=== PATIENT | female | born 1990 | race American Indian/Alaskan Native ===

== ENCOUNTER 2016-10-08 01:41 | Emergency (ER) | payer SELFPAY ==
[2016-10-08] MEDS ORDERED: BENADRYL PO ONE ×2 (05:08→05:15)
[2016-10-08 06:35] VITALS: BP 134/79
--- NOTE | 2016-10-08 06:35 | Emergency Department Report ---
HPI - General Chief Complaint: Skin Rash Time Seen by Provider: 10/08/16 06:17 - HPI HPI: 26-year-old female presents today with rash with itching and burning sensation to both upper extremities and around her mouth that started yesterday. Denies history of allergies. Denies history of similar symptoms. Denies difficulty breathing and difficulty in swallowing. Denies fever, chills, nausea, vomiting , chest pain, shortness of breath, abdominal pain. ED Past Medical Hx - Past Medical History Previous Medical History?: No - Surgical History Past Surgical History?: No - Social History Smoking Status: Never Smoker Substance Use Type: None - Medications Home Medications: Home Medications Medication Instructions Recorded Confirmed Last Taken Type Sulfamethoxazole/Trimethoprim 1 each PO Q12H #14 tablet 02/16/15 Unknown Rx [Bactrim DS TAB] traMADol [Ultram 50 MG tab] 50 mg PO Q6HR PRN #16 tablet 02/16/15 Unknown Rx diphenhydrAMINE [Benadryl CAP] 25 mg PO Q6HR PRN #20 capsule 10/08/16 Unknown Rx ED Review of Systems ROS: Stated complaint: ARM ICHING/BURING Other details as noted in HPI Constitutional: denies: chills, fever, malaise Eyes: denies: eye pain ENT: denies: ear pain, throat pain, congestion Respiratory: denies: cough, shortness of breath, wheezing Cardiovascular: denies: chest pain, palpitations Endocrine: no symptoms reported Gastrointestinal: denies: abdominal pain, nausea, vomiting Skin: rash Neurological: denies: headache, weakness Physical Exam - Physical Exam Vital Signs: Vital Signs 10/08/16 10/08/16 01:57 05:07 Temperature 98.3 F 97.9 F Pulse Rate 118 H 70 Respiratory 18 18 Rate Blood Pressure 142/94 121/80 O2 Sat by Pulse 100 99 Oximetry Physical Exam: GENERAL: The patient is well-developed and well-nourished. Patient is in NAD. SKIN: No rash noted to the upper extremities or face. (examination post medication) HEAD: Normocephalic. Atraumatic. EYES: PERRL. NOSE: Normal nasal mucosa with no nasal discharge. THROAT: No erythema, swelling or exudates. NECK: Supple, nontender, without lymphadenopathy. CHEST/LUNGS: Clear to auscultation throughout. HEART/CARDIOVASCULAR: Regular rate and rhythm. No murmurs, rubs or gallops. ABDOMEN: Abdomen is soft, nontender. Bowel sounds normoactive. No guarding or rebound tenderness. EXTREMITIES: Peripheral pulses intact. Capillary refill less than 2 seconds. NEURO: Alert and oriented x 3. Normal gait. ED Course Vital Signs 10/08/16 10/08/16 01:57 05:07 Temperature 98.3 F 97.9 F Pulse Rate 118 H 70 Respiratory 18 18 Rate Blood Pressure 142/94 121/80 O2 Sat by Pulse 100 99 Oximetry ED Medical Decision Making - Lab Data Vital Signs 10/08/16 10/08/16 10/08/16 01:57 05:07 06:34 Temperature 98.3 F 97.9 F 97.9 F Pulse Rate 118 H 70 89 Respiratory 18 18 18 Rate Blood Pressure 142/94 121/80 Blood Pressure 134/79 [Right] O2 Sat by Pulse 100 99 100 Oximetry - Medical Decision Making 26-year-old female presents today with itching and burning sensation to both upper extremities and surrounding the mouth. Patient was given Benadryl and reports symptomatic relief. Patient is in no acute distress at this time. She will be discharged home and is encouraged to follow up with a primary care provider. She will be sent home on Benadryl and is encouraged to return to the emergency room for any worsening symptoms. Critical care attestation.: If time is entered above; I have spent that time in minutes in the direct care of this critically ill patient, excluding procedure time. ED Disposition Clinical Impression: Rash, Pruritus and related conditions Disposition: DISCHARGED TO HOME OR SELFCARE Is pt being admited?: No Does the pt Need Aspirin: No Condition: Stable Instructions: Acute Rash (ED) Additional Instructions: Follow-up with primary care provider. Return to the emergency department if symptoms worsen. Prescriptions: diphenhydrAMINE [Benadryl CAP] 25 mg PO Q6HR PRN #20 capsule PRN Reason: Itching Referrals: PRIMARY CARE, [Primary Care Provider] - 3-5 Days [facility] [Outside] - 3-5 Days Forms: Work/School Release Form(ED) Time of Disposition: 06:36
== END 2016-10-08 06:47 | disposition home or self-care (01) ==
LOC: ED 01:41
DX: L29.9 Pruritus, unspecified (principal)
CPT/HCPCS: 99282

== ENCOUNTER 2017-11-07 12:44 | Emergency (ER) | payer SELFPAY ==
[2017-11-07 12:52] VITALS: BP 124/72
[2017-11-07 14:47] LABS: Bacteria,Urine 1+ /HPF (Negative); Bilirubin,Urine NEG (Negative); Blood,Urine MOD (Negative); Color,Urine Straw (Yellow); Protein,Urine <15 mg/dL mg/dL (Negative); Urobilinogen,Urine < 2.0 mg/dL (<2.0)
[2017-11-07 14:49] LABS: HCG Qualitative,Urine Negative (Negative)
--- NOTE | 2017-11-07 15:09 | Emergency Department Report ---
ED Female HPI - General Chief complaint: Urogenital-Female Stated complaint: BURNING WITH UNRINATION Time Seen by Provider: 11/07/17 14:14 Source: patient Mode of arrival: Ambulatory Limitations: No Limitations - History of Present Illness Initial comments: This is a 27-year-old female nontoxic, well nourished in appearance, no acute signs of distress presents to the ED with c/o of vaginal discharge, vaginal rash , itching, and dysuria x3 days. Patient stated he is concerned about STD and wants to be treated empirically. Patient stated she had several intercourse with 2 different partners with no protection prior to these symptoms. Patient denies any nausea, vomiting, chest pain, abdominal pain, shortness of breathe, fever, chills, back pain, headache, or back pain. Patient denies polyuria or hematuria. Patient denies any vaginal bleeding. Patient denies any allergies or PMH. MD Complaint: vaginal discharge, dysuria, possible STD -: days(s) (3) Location: labia Radiation: non-radiating Severity: mild Severity scale (0 -10): 3 Quality: burning Consistency: constant Improves with: none Worsens with: urination Are you Now?: No Last Menstrual Period: 10/08/17 EDC: 07/15/18 Associated Symptoms: vaginal discharge, dysuria. denies: vaginal bleeding, abdominal pain, nausea/vomiting, fever/chills, headaches, loss of appetite, hematuria, rash, seizure, shortness of breath, syncope, weakness - Related Data Sexually active: No Previous Rx's Medication Instructions Recorded Last Taken Type Sulfamethoxazole/Trimethoprim 1 each PO Q12H #14 tablet 02/16/15 Unknown Rx [Bactrim DS TAB] traMADol [Ultram 50 MG tab] 50 mg PO Q6HR PRN #16 tablet 02/16/15 Unknown Rx diphenhydrAMINE [Benadryl CAP] 25 mg PO Q6HR PRN #20 capsule 10/08/16 Unknown Rx Sulfamethoxazole/Trimethoprim 1 each PO BID #14 tablet 11/07/17 Unknown Rx [Bactrim DS TAB] metroNIDAZOLE [Flagyl] 500 mg PO Q12HR #14 tab 11/07/17 Unknown Rx Allergies Allergy/AdvReac Type Severity Reaction Status Date / Time No Known Allergies Allergy Verified 02/15/15 22:57 ED Review of Systems ROS: Stated complaint: BURNING WITH UNRINATION Other details as noted in HPI Constitutional: denies: chills, fever Eyes: denies: eye pain, eye discharge, vision change ENT: denies: ear pain, throat pain Respiratory: denies: cough, shortness of breath, wheezing Cardiovascular: denies: chest pain, palpitations Endocrine: no symptoms reported Gastrointestinal: denies: abdominal pain, nausea, diarrhea Genitourinary: dysuria. denies: urgency, hematuria, discharge Musculoskeletal: denies: back pain, joint swelling, arthralgia Skin: denies: rash, lesions Neurological: denies: headache, weakness, paresthesias Psychiatric: denies: anxiety, depression Hematological/Lymphatic: denies: easy bleeding, easy bruising ED Past Medical Hx - Past Medical History Previous Medical History?: No - Surgical History Past Surgical History?: No - Social History Smoking Status: Never Smoker Substance Use Type: None - Medications Home Medications: Home Medications Medication Instructions Recorded Confirmed Last Taken Type Sulfamethoxazole/Trimethoprim 1 each PO Q12H #14 tablet 02/16/15 Unknown Rx [Bactrim DS TAB] traMADol [Ultram 50 MG tab] 50 mg PO Q6HR PRN #16 tablet 02/16/15 Unknown Rx diphenhydrAMINE [Benadryl CAP] 25 mg PO Q6HR PRN #20 capsule 10/08/16 Unknown Rx Sulfamethoxazole/Trimethoprim 1 each PO BID #14 tablet 11/07/17 Unknown Rx [Bactrim DS TAB] metroNIDAZOLE [Flagyl] 500 mg PO Q12HR #14 tab 11/07/17 Unknown Rx ED Physical Exam - General Limitations: No Limitations General appearance: alert, in no apparent distress - Head Head exam: Present: atraumatic, normocephalic - Eye Eye exam: Present: normal appearance Pupils: Present: normal accommodation - ENT ENT exam: Present: normal exam, mucous membranes moist - Neck Neck exam: Present: normal inspection, full ROM. Absent: tenderness, meningismus, lymphadenopathy - Respiratory Respiratory exam: Present: normal lung sounds bilaterally. Absent: respiratory distress, wheezes, rales, rhonchi, stridor, chest wall tenderness, accessory muscle use, decreased breath sounds, prolonged expiratory - Cardiovascular Cardiovascular Exam: Present: regular rate, normal rhythm, normal heart sounds. Absent: irregular rhythm, systolic murmur, diastolic murmur, rubs, gallop - GI/Abdominal GI/Abdominal exam: Present: soft, normal bowel sounds. Absent: distended, tenderness, guarding, rebound, rigid, diminished bowel sounds - Rectal Rectal exam: Present: deferred - External exam: Present: normal external exam, other (decorative cutting machine tender Mckayla JAMA present during exam). Absent: erythema, swelling, lesions, lacerations, ecchymosis, bleeding Speculum exam: Present: normal speculum exam, cervical discharge, other ( decorative cutting machine tender Mckayla JAMA present during exam). Absent: erythema, vaginal discharge, vaginal bleeding, foreign body, tissue, laceration Bi-manual exam: Present: normal bi-manual exam, other (decorative cutting machine tender Mckayla JAMA present during exam). Absent: cervical motion tendernes, adnexal tenderness, adnexal mass, uterine enlargement, uterine tenderness - Extremities Exam Extremities exam: Present: normal inspection, full ROM - Back Exam Back exam: Present: normal inspection, full ROM. Absent: tenderness, CVA tenderness (R), CVA tenderness (L) - Neurological Exam Neurological exam: Present: alert, oriented X3, normal gait - Psychiatric Psychiatric exam: Present: normal affect, normal mood - Skin Skin exam: Present: warm, dry, intact, normal color. Absent: rash ED Course Vital Signs 11/07/17 12:48 Temperature 98.5 F Pulse Rate 116 H Respiratory 16 Rate Blood Pressure 124/72 O2 Sat by Pulse 100 Oximetry - Reevaluation(s) Reevaluation #1: 11/07/17 15:11 Patient is speaking in full sentences with no signs of distress noted. ED Medical Decision Making - Medical Decision Making This is a 27-year-old female that presents with UTI, possible STD and Trichamonas. Patient is stable and was examined by me. G/C pending but patient still stated wants to be treated empirically. Patient received a Rocephin and azithromycin. Patient was instructed to return in 3 days to receive results of gonorrhea and chlamydia. UA obtained. Negative test. Patient is discharged with Bactrim and Flagyl. Patient was instructed not to consume any alcohol while taking antibiotics. Patient was referred to Follow-up with a primary care doctor in 3-5 days or if symptoms worsen and continue return to emergency room as soon as possible. At time of discharge, the patient does not seem toxic or ill in appearance. No acute signs of distress noted. Patient agrees to discharge treatment plan of care. No further questions noted by the patient. Critical care attestation.: If time is entered above; I have spent that time in minutes in the direct care of this critically ill patient, excluding procedure time. ED Disposition Clinical Impression: Trichomonas infection, Possible exposure to STD UTI (urinary tract infection) Qualifiers: Urinary tract infection type: site unspecified Hematuria presence: with hematuria Qualified Code(s): N39.0 - Urinary tract infection, site not specified ; R31.9 - Hematuria, unspecified Disposition: DC-01 TO HOME OR SELFCARE Is pt being admited?: No Does the pt Need Aspirin: No Condition: Stable Instructions: Metronidazole (By mouth), Sulfamethoxazole/Trimethoprim (By mouth ), Urinary Tract Infection in Women (ED), Trichomoniasis (ED) Additional Instructions: Follow-up with a primary care doctor in 3-5 days or if symptoms worsen and continue return to emergency room as soon as possible. Prescriptions: metroNIDAZOLE [Flagyl] 500 mg PO Q12HR #14 tab Sulfamethoxazole/Trimethoprim [Bactrim DS TAB] 1 each PO BID #14 tablet Referrals: PRIMARY CAREMD [Primary Care Provider] - 3-5 Days THOMAS GIANG MD [Staff Physician] - 3-5 Days [facility] [Outside] - 3-5 Days [facility] - [facility]-5 Days Forms: Work/School Release Form(ED)
[2017-11-07] MEDS ORDERED: ZITHROMAX PO ONE (16:12)
[2017-11-07] MEDS ORDERED: XYLOCAINE 1% MPF 5 mL INFILTRATI ONE (16:12)
[2017-11-07] MEDS ORDERED: ROCEPHIN IM ONE (16:12)
== END 2017-11-07 16:48 | disposition home or self-care (01) ==
LOC: ED 12:44
DX: A59.01 Trichomonal vulvovaginitis (principal); N39.0 Urinary tract infection, site not specified; Z20.2 Contact with and (suspected) exposure to infections with a predominantly sexual mode of transmission
CPT/HCPCS: 81001; 81025; 87086; 87210; 87591; 96372; 99283; J0696

== ENCOUNTER 2018-08-11 18:30 | Emergency (ER) | payer SELFPAY ==
--- NOTE | 2018-08-11 19:34 | Emergency Department Report ---
Blank Doc - Documentation Documentation: This is a 28-year-old female that presents with right upper abdominal pain and radiates to back. No chest pain or SOB. Denies any other complaints. This initial assessment diagnostic orders/clinical plan/treatment(s) is/are subject to change based on patient's health status, clinical progression and re- assessment by fellow clinical providers in the ED. Further treatment and workup at subsequent clinical providers discretion. Patient/guardians urged not to elope from ED s their condition may be serious if not clinically assessed and managed. Initial orders include: 1-Patient sent to [facility] for further evaluation and treatment 2-labs 3- UA
[2018-08-11 20:12] LABS: Basophils % (Auto) 0.5 % (0.0-1.8); Eosinophils # (Auto) 0.3 K/mm3 (0.0-0.4); Eosinophils % (Auto) 2.9 % (0.0-4.3); Hematocrit 37.4 % (30.3-42.9); Hemoglobin 13.1 gm/dl (10.1-14.3); Lymphocytes % (Auto) 33.7 % (13.4-35.0); Mean Corpuscular HGB Conc 35 % (30-34); Mean Corpuscular Volume 94 fl (79-97); Monocytes # (Auto) 0.4 K/mm3 (0.0-0.8); Monocytes % (Auto) 4.6 % (0.0-7.3); Platelet Count 340 K/mm3 (140-440); Red Blood Count 3.99 M/mm3 (3.65-5.03)
[2018-08-11 20:29] LABS: Alanine Aminotransferase 96 units/L (7-56); Albumin 4.2 g/dL (3.9-5); BUN/Creatinine Ratio 16; Blood Urea Nitrogen 8 mg/dL (7-17); Calcium 9.1 mg/dL (8.4-10.2); Hemolysis Index 4
[2018-08-11 20:31] LABS: Bilirubin,Urine NEG (Negative); Blood,Urine NEG (Negative); Color,Urine Yellow (Yellow); Mucus,Urine FEW /HPF; Protein,Urine <15 mg/dL mg/dL (Negative); Urobilinogen,Urine < 2.0 mg/dL (<2.0)
[2018-08-11] MEDS ORDERED: NACL 0.9% 1000 ML 1,000 ML IV ONE (21:44)
[2018-08-11] MEDS ORDERED: ZOFRAN IV ONE (21:44)
--- NOTE | 2018-08-11 23:21 | Cat Scan Report ---
FINAL REPORT EXAM: CT ABDOMEN PELVIS W CON HISTORY: abd pain TECHNIQUE: CT abdomen and pelvis with intravenous contrast PRIORS: None. FINDINGS: No acute abnormality identified in the lung bases. No focal abnormality identified within the liver parenchyma. The spleen demonstrates normal size and attenuation. No pancreatic abnormalities seen. The kidneys demonstrate symmetric contrast enhancement. No evidence of hydronephrosis. The adrenal glands are unremarkable Abdominal aorta is normal in caliber. No pathologically enlarged lymph nodes are identified. No signs of free fluid or free air No evidence of small bowel dilatation. Colon is nondistended. No pericolonic inflammatory change. The appendix is identified and is unremark able. Urinary bladder is unremarkable. IMPRESSION: Negative. No acute abnormalities seen
--- NOTE | 2018-08-11 23:44 | Emergency Department Report ---
ED Abdominal Pain HPI - General Chief Complaint: Abdominal Pain Stated Complaint: CHEST PAIN/STOMACH Time Seen by Provider: 08/11/18 19:33 Source: patient Mode of arrival: Ambulatory Limitations: No Limitations - History of Present Illness Initial Comments: Patient is a 28-year-old -[place]onese female who presents from primary care's office for abnormal ALT of 96 pt state RUQ for past 3 weeks intermittent nausea no vomiting no fever no diarrhea pt is tolerating po intake at this time, without n/v symptoms are triggered by spicey foods symptoms are relieved nothing tried, pt denies etoh or substance. Onset/Timin -: week(s) Radiation: RUQ Migration to: RUQ Severity: moderate Severity scale (0 -10): 7 Quality: aching Consistency: intermittent Improves With: rest Worsens With: eating Associated Symptoms: denies: vomiting, diarrhea, chills, constipation, dysuria, hematemesis, hematochezia, melena, hematuria, anorexia, syncope Treatments Prior to Arrival: NSAIDs - Related Data LMP (females 10-50): last week Previous Rx's Medication Instructions Recorded Last Taken Type Sulfamethoxazole/Trimethoprim 1 each PO Q12H #14 tablet 02/16/15 Unknown Rx [Bactrim DS TAB] traMADol [Ultram 50 MG tab] 50 mg PO Q6HR PRN #16 tablet 02/16/15 Unknown Rx diphenhydrAMINE [Benadryl CAP] 25 mg PO Q6HR PRN #20 capsule 10/08/16 Unknown Rx Sulfamethoxazole/Trimethoprim 1 each PO BID #14 tablet 11/07/17 Unknown Rx [Bactrim DS TAB] metroNIDAZOLE [Flagyl] 500 mg PO Q12HR #14 tab 11/07/17 Unknown Rx Famotidine [Pepcid] 20 mg PO BID #60 tablet 08/11/18 Unknown Rx Allergies Allergy/AdvReac Type Severity Reaction Status Date / Time No Known Allergies Allergy Verified 08/11/18 18:31 ED Review of Systems ROS: Stated complaint: CHEST PAIN/STOMACH Other details as noted in HPI Constitutional: denies: chills, fever Eyes: denies: eye pain, eye discharge, vision change ENT: denies: ear pain, throat pain Respiratory: denies: cough, shortness of breath, wheezing Cardiovascular: denies: chest pain, palpitations Endocrine: no symptoms reported Gastrointestinal: abdominal pain (RUQ ). denies: nausea, vomiting, diarrhea, constipation, hematemesis, melena, hematochezia Genitourinary: denies: urgency, dysuria, discharge Musculoskeletal: denies: back pain, joint swelling, arthralgia Skin: denies: rash, lesions Neurological: denies: headache, weakness, paresthesias Psychiatric: denies: anxiety, depression Hematological/Lymphatic: denies: easy bleeding, easy bruising ED Past Medical Hx - Past Medical History Previous Medical History?: No - Surgical History Past Surgical History?: No - Social History Smoking Status: Never Smoker Substance Use Type: Marijuana - Medications Home Medications: Home Medications Medication Instructions Recorded Confirmed Last Taken Type Sulfamethoxazole/Trimethoprim 1 each PO Q12H #14 tablet 02/16/15 Unknown Rx [Bactrim DS TAB] traMADol [Ultram 50 MG tab] 50 mg PO Q6HR PRN #16 tablet 02/16/15 Unknown Rx diphenhydrAMINE [Benadryl CAP] 25 mg PO Q6HR PRN #20 capsule 10/08/16 Unknown Rx Sulfamethoxazole/Trimethoprim 1 each PO BID #14 tablet 11/07/17 Unknown Rx [Bactrim DS TAB] metroNIDAZOLE [Flagyl] 500 mg PO Q12HR #14 tab 11/07/17 Unknown Rx Famotidine [Pepcid] 20 mg PO BID #60 tablet 08/11/18 Unknown Rx ED Physical Exam - General Limitations: No Limitations General appearance: alert, in no apparent distress - Head Head exam: Present: atraumatic, normocephalic - Eye Eye exam: Present: normal appearance, PERRL, EOMI Pupils: Present: normal accommodation - ENT ENT exam: Present: normal exam, mucous membranes moist - Neck Neck exam: Present: normal inspection, full ROM. Absent: lymphadenopathy - Respiratory Respiratory exam: Present: normal lung sounds bilaterally, chest wall tenderness. Absent: respiratory distress, wheezes, rales, rhonchi, stridor, prolonged expiratory - Cardiovascular Cardiovascular Exam: Present: regular rate, normal rhythm, normal heart sounds. Absent: systolic murmur, diastolic murmur, rubs, gallop - GI/Abdominal GI/Abdominal exam: Present: soft, tenderness (RUQ ), normal bowel sounds, organomegaly. Absent: distended, guarding, rebound, rigid, bruit, hernia - Rectal Rectal exam: Present: deferred - Extremities Exam Extremities exam: Present: normal inspection, full ROM, normal capillary refill. Absent: tenderness, pedal edema, joint swelling, calf tenderness - Back Exam Back exam: Present: normal inspection. Absent: full ROM, tenderness, CVA tenderness (R), CVA tenderness (L), muscle spasm, paraspinal tenderness, vertebral tenderness, rash noted - Neurological Exam Neurological exam: Present: alert, oriented X3, CN II-XII intact, normal gait, reflexes normal. Absent: motor sensory deficit - Psychiatric Psychiatric exam: Present: normal affect, normal mood - Skin Skin exam: Present: warm, dry, intact, normal color. Absent: rash ED Course Vital Signs 08/11/18 19:31 Temperature 98.6 F Pulse Rate 93 H Respiratory 18 Rate Blood Pressure 121/79 O2 Sat by Pulse 99 Oximetry ED Medical Decision Making - Lab Data Result diagrams: 08/11/18 19:45 08/11/18 19:45 Labs 08/11/18 08/11/18 08/11/18 19:45 19:45 19:45 WBC 8.8 RBC 3.99 Hgb 13.1 Hct 37.4 MCV 94 MCH 33 H MCHC 35 H RDW 13.0 L Plt Count 340 Lymph % (Auto) 33.7 Divide % (Auto) 4.6 Eos % (Auto) 2.9 Baso % (Auto) 0.5 Lymph # 3.0 Divide # 0.4 Eos # 0.3 Baso # 0.0 Seg Neutrophils % 58.3 Seg Neutrophils # 5.1 Sodium 142 Potassium 3.5 L Chloride 105.3 Carbon Dioxide 28 Anion Gap 12 BUN 8 Creatinine 0.5 L Estimated GFR > 60 BUN/Creatinine Ratio 16 Glucose 81 Calcium 9.1 Total Bilirubin 0.20 AST 40 ALT 96 H Alkaline Phosphatase 142 H Total Protein 7.2 Albumin 4.2 Albumin/Globulin Ratio 1.4 Lipase 33 HCG, Qual Negative Urine Color Urine Turbidity Urine pH Ur Specific Hammond Urine Protein Urine Glucose (UA) Urine Ketones Urine Blood Urine Nitrite Urine Bilirubin Urine Urobilinogen Ur Leukocyte Esterase Urine WBC (Auto) Urine RBC (Auto) U Epithel Cells (Auto) Urine Mucus 08/11/18 Unknown WBC RBC Hgb Hct MCV MCH MCHC RDW Plt Count Lymph % (Auto) Divide % (Auto) Eos % (Auto) Baso % (Auto) Lymph # Divide # Eos # Baso # Seg Neutrophils % Seg Neutrophils # Sodium Potassium Chloride Carbon Dioxide Anion Gap BUN Creatinine Estimated GFR BUN/Creatinine Ratio Glucose Calcium Total Bilirubin AST ALT Alkaline Phosphatase Total Protein Albumin Albumin/Globulin Ratio Lipase HCG, Qual Urine Color Yellow Urine Turbidity Clear Urine pH 6.0 Ur Specific Hammond 1.012 Urine Protein <15 mg/dl Urine Glucose (UA) Neg Urine Ketones Neg Urine Blood Neg Urine Nitrite Neg Urine Bilirubin Neg Urine Urobilinogen < 2.0 Ur Leukocyte Esterase Neg Urine WBC (Auto) 1.0 Urine RBC (Auto) 1.0 U Epithel Cells (Auto) 2.0 Urine Mucus Few - Radiology Data Radiology results: report reviewed, image reviewed FINAL REPORT EXAM: CT ABDOMEN PELVIS W CON HISTORY: abd pain TECHNIQUE: CT abdomen and pelvis with intravenous contrast PRIORS: None. FINDINGS: No acute abnormality identified in the lung bases. No focal abnormality identified within the liver parenchyma. The spleen demonstrates normal size and attenuation. No pancreatic abnormalities seen. The kidneys demonstrate symmetric contrast enhancement. No evidence of hydronephrosis. The adrenal glands are unremarkable Abdominal aorta is normal in caliber. No pathologically enlarged lymph nodes are identified. No signs of free fluid or free air No evidence of small bowel dilatation. Colon is nondistended. No pericolonic inflammatory change. The appendix is identified and is unremarkable. Urinary bladder is unremarkable. IMPRESSION: Negative. No acute abnormalities seen Transcribed By: Yobany Dictated By: MAY VAZQUEZ MD Electronically Authenticated By: MAY VAZQUEZ MD Signed Date/Time: 08/11/182320 DD/ 19 TD/TT: 08/11/182319 - Medical Decision Making CT abd pelvis normal, no gallstones no mass no bleeding, plan: pepcid po bid, follow up with GI and back to pcp in tomorrow pt verbaled agreement and understanding of same. pt for dc t home in stable condition at this time, , pt is tolerating PO intake without n/v at this time, Critical care attestation.: If time is entered above; I have spent that time in minutes in the direct care of this critically ill patient, excluding procedure time. ED Disposition Clinical Impression: Right upper quadrant pain Abdominal pain Qualifiers: Abdominal location: right upper quadrant Qualified Code(s): R10.11 - Right upper quadrant pain Disposition: DC-01 TO HOME OR SELFCARE Is pt being admited?: No Does the pt Need Aspirin: No Condition: Stable Instructions: Abdominal Pain (ED), Diet for Ulcers and Gastritis (ED) Prescriptions: Famotidine [Pepcid] 20 mg PO BID #60 tablet Referrals: JOSE KATE MD [Primary Care Provider] - 3-5 Days Forms: Work/School Release Form(ED) Time of Disposition: 23:56
[2018-08-12 00:06] VITALS: BP 125/78
== END 2018-08-12 00:05 | disposition home or self-care (01) ==
LOC: ED 18:30
DX: R10.11 Right upper quadrant pain (principal); F12.10 Cannabis abuse, uncomplicated
CPT/HCPCS: 36415; 74177; 80053; 81001; 83690; 84703; 85025; 99284; Q9967; J2405; J7030

== ENCOUNTER 2019-01-06 23:39 | Emergency (ER) | payer MEDICAID ==
[2019-01-07 01:39] LABS: Bacteria,Urine 1+ /HPF (Negative); Bilirubin,Urine NEG (Negative); Blood,Urine SM (Negative); Color,Urine Yellow (Yellow); Mucus,Urine FEW /HPF; Protein,Urine <15 mg/dL mg/dL (Negative); Urobilinogen,Urine < 2.0 mg/dL (<2.0)
[2019-01-07 01:45] LABS: HCG Qualitative,Urine Positive (Negative)
--- NOTE | 2019-01-07 03:17 | Emergency Department Report ---
ED Abdominal Pain HPI - General Chief Complaint: Abdominal Pain Stated Complaint: ABDOMINAL PAIN FELL AT WORK Time Seen by Provider: 01/07/19 02:15 Source: patient Mode of arrival: Ambulatory Limitations: No Limitations - History of Present Illness Initial Comments: Patient is a 28-year-old female who presents the emergency room with complaints of right suprapubic abdominal pain that began earlier today. She states she was at work and tripped over luggage and fell onto a piece of luggage. she denies any bruising of the abdomen. she denies any nausea, vomiting, diarrhea, fever, urinary symptoms, hematuria. States she thinks her last menstrual period was around 2 months ago. States she has never been before. Denies any past medical history or allergies to medications. She endorses marijuana use. - Related Data Previous Rx's Medication Instructions Recorded Last Taken Type Sulfamethoxazole/Trimethoprim 1 each PO Q12H #14 tablet 02/16/15 Unknown Rx [Bactrim DS TAB] traMADol [Ultram 50 MG tab] 50 mg PO Q6HR PRN #16 tablet 02/16/15 Unknown Rx diphenhydrAMINE [Benadryl CAP] 25 mg PO Q6HR PRN #20 capsule 10/08/16 Unknown Rx Sulfamethoxazole/Trimethoprim 1 each PO BID #14 tablet 11/07/17 Unknown Rx [Bactrim DS TAB] metroNIDAZOLE [Flagyl] 500 mg PO Q12HR #14 tab 11/07/17 Unknown Rx Famotidine [Pepcid] 20 mg PO BID #60 tablet 08/11/18 Unknown Rx 21/Iron Fu/Folic Acid 1 each PO DAILY #1 tablet 01/07/19 Unknown Rx [ Complete Caplet] Allergies Allergy/AdvReac Type Severity Reaction Status Date / Time No Known Allergies Allergy Verified 08/11/18 18:31 ED Review of Systems ROS: Stated complaint: ABDOMINAL PAIN FELL AT WORK Other details as noted in HPI Comment: All other systems reviewed and negative ED Past Medical Hx - Past Medical History Previous Medical History?: No - Surgical History Past Surgical History?: Yes Additional Surgical History: lipo - Social History Smoking Status: Never Smoker Substance Use Type: Marijuana - Medications Home Medications: Home Medications Medication Instructions Recorded Confirmed Last Taken Type Sulfamethoxazole/Trimethoprim 1 each PO Q12H #14 tablet 02/16/15 Unknown Rx [Bactrim DS TAB] traMADol [Ultram 50 MG tab] 50 mg PO Q6HR PRN #16 tablet 02/16/15 Unknown Rx diphenhydrAMINE [Benadryl CAP] 25 mg PO Q6HR PRN #20 capsule 10/08/16 Unknown Rx Sulfamethoxazole/Trimethoprim 1 each PO BID #14 tablet 11/07/17 Unknown Rx [Bactrim DS TAB] metroNIDAZOLE [Flagyl] 500 mg PO Q12HR #14 tab 11/07/17 Unknown Rx Famotidine [Pepcid] 20 mg PO BID #60 tablet 08/11/18 Unknown Rx 21/Iron Fu/Folic Acid 1 each PO DAILY #1 tablet 01/07/19 Unknown Rx [ Complete Caplet] ED Physical Exam - General Limitations: No Limitations General appearance: alert, in no apparent distress - Head Head exam: Present: atraumatic, normocephalic - Eye Eye exam: Present: normal appearance, PERRL - ENT ENT exam: Present: mucous membranes moist - Respiratory Respiratory exam: Present: normal lung sounds bilaterally. Absent: respiratory distress, wheezes, rales, rhonchi, stridor, chest wall tenderness, accessory muscle use, decreased breath sounds, prolonged expiratory - Cardiovascular Cardiovascular Exam: Present: regular rate, normal rhythm, normal heart sounds. Absent: systolic murmur, diastolic murmur, rubs, gallop - GI/Abdominal GI/Abdominal exam: Present: soft, normal bowel sounds. Absent: distended, tenderness, guarding, rebound, rigid - Back Exam Back exam: Absent: CVA tenderness (R), CVA tenderness (L) - Neurological Exam Neurological exam: Present: alert, oriented X3 - Psychiatric Psychiatric exam: Present: normal affect, normal mood - Skin Skin exam: Present: warm, dry, intact ED Course Vital Signs 01/06/19 01/07/19 23:43 06:50 Temperature 98.1 F 98 F Pulse Rate 82 82 Respiratory 16 18 Rate Blood Pressure 115/76 Blood Pressure 110/68 [Left] O2 Sat by Pulse 100 100 Oximetry ED Medical Decision Making - Lab Data Lab Results 01/07/19 01/07/19 Range/Units 01:10 02:49 HCG, Quant 442.8 H (0-4) mIU/mL Urine Color Yellow (Yellow) Urine Turbidity Clear (Clear) Urine pH 6.0 (5.0-7.0) Ur Specific [place] 1.012 (1.003-1.030) Urine Protein <15 mg/dl (Negative) mg/dL Urine Glucose (UA) Neg (Negative) mg/dL Urine Ketones 20 (Negative) mg/dL Urine Blood Sm (Negative) Urine Nitrite Neg (Negative) Urine Bilirubin Neg (Negative) Urine Urobilinogen < 2.0 (<2.0) mg/dL Ur Leukocyte Esterase Neg (Negative) Urine WBC (Auto) 1.0 (0.0-6.0) /HPF Urine RBC (Auto) 3.0 (0.0-6.0) /HPF U Epithel Cells (Auto) 1.0 (0-13.0) /HPF Urine Bacteria (Auto) 1+ (Negative) /HPF Urine Mucus Few /HPF Urine HCG, Qual Positive A (Negative) - Radiology Data Radiology results: report reviewed ULTRASOUND OBSTETRIC INDICATION: Abdominal pain. Early . Beta hCG of 442. TECHNIQUE: Transabdominal. COMPARISON: None available. FINDINGS: UTERUS: Normal in size, measuring 7.6 x 3.6 x 5.4 cm. No gestational sac is identified. The endometrial stripe measures 10 mm in thickness and appears unremarkable. ADNEXA: The right ovary is normal in size and appearance, measuring 2.6 x 1.4 x 1.6 cm. The left ovary measures 3.1 x 1.9 x 2.1 cm with a possible corpus luteum cyst measuring 2 mm. FREE FLUID: None. ADDITIONAL FINDINGS: None. IMPRESSION: No intrauterine or ectopic is clearly seen sonographically. Close clinical and imaging follow-up is recommended. Signer Name: Dar Bolton MD Signed: 01/07/2019 5:41 AM Workstation Name: [id number] Transcribed By: ANNETTE Dictated By: Dar Bolton MD Electronically Authenticated By: Dar Bolton MD Signed Date/Time: 01/07/19 0541 - Medical Decision Making Patient is a 28-year-old female who presents the emergency room with complaints of right suprapubic abdominal pain that began earlier today. She states she was at work and tripped over luggage and fell onto a piece of luggage. she denies any bruising of the abdomen. she denies any nausea, vomiting, diarrhea, fever, urinary symptoms, hematuria. States she thinks her last menstrual period was around 2 months ago. States she has never been before. Denies any past medical history or allergies to medications. She endorses marijuana use. UA is normal. urine preg is positive. hcg quant is in the 400s. OB US performed and shows No intrauterine or ectopic is clearly seen sonographically. Close clinical and imaging follow-up is recommended. pt was advised by my colleague RONNIE schulte to follow up with an [employer]. he discussed with pt that she would need a repeat hcg quant in the next 48 hours. return to the emergency room for any new or worsening symptoms. Critical care attestation.: If time is entered above; I have spent that time in minutes in the direct care of this critically ill patient, excluding procedure time. ED Disposition Clinical Impression: Abdominal pain in Qualifiers: Trimester: first trimester Qualified Code(s): O26.891 - Other specified related conditions, first trimester; R10.9 - Unspecified abdominal pain Disposition: - TO HOME OR SELFCARE Is pt being admited?: No Does the pt Need Aspirin: No Condition: Stable Instructions: Abdominal Pain (ED) Prescriptions: 21/Iron Fu/Folic Acid [ Complete Caplet] 1 each PO DAILY #1 tablet Referrals: PRIMARY CARE, [Primary Care Provider] - 2-3 Days
--- NOTE | 2019-01-07 05:45 | Ultrasound Report ---
ULTRASOUND OBSTETRIC INDICATION: Abdominal pain. Early . Beta hCG of 442. TECHNIQUE: Transabdominal. COMPARISON: None available. FINDINGS: UTERUS: Normal in size, measuring 7.6 x 3.6 x 5.4 cm. No gestational sac is identified. The endometri al stripe measures 10 mm in thickness and appears unremarkable. ADNEXA: The right ovary is normal in size and appearance, measuring 2.6 x 1.4 x 1.6 cm. The left ovar y measures 3.1 x 1.9 x 2.1 cm with a possible corpus luteum cyst measuring 2 mm. FREE FLUID: None. ADDITIONAL FINDINGS: None. IMPRESSION: No intrauterine or ectopic is clearly seen sonographically. Close clinical and imaging foll ow-up is recommended. Signer Name: Dar Bolton MD Signed: 01/07/2019 5:41 AM Workstation Name: [id number]
[2019-01-07 06:52] VITALS: BP 110/68
== END 2019-01-07 06:55 | disposition home or self-care (01) ==
LOC: ED 23:39
DX: O26.891 Other specified pregnancy related conditions, first trimester (principal); R10.30 Lower abdominal pain, unspecified; O99.321 Drug use complicating pregnancy, first trimester; F12.90 Cannabis use, unspecified, uncomplicated; Z79.899 Other long term (current) drug therapy; Z3A.00 Weeks of gestation of pregnancy not specified; W01.198A Fall on same level from slipping, tripping and stumbling with subsequent striking against other object, initial encounter; Y93.89 Activity, other specified; Y92.89 Other specified places as the place of occurrence of the external cause; Y99.0 Civilian activity done for income or pay
CPT/HCPCS: 36415; 76801; 76802; 76817; 81001; 81025; 84702; 99284